=== PATIENT | female | born 1995 | race Caucasian/White ===

== ENCOUNTER 2023-11-18 23:07 | Emergency (ER) | payer OTHER ==
[2023-11-18 23:21] VITALS: BP 115/70; PULSE 75; RESP 18; TEMP 97.7; BMI 26.4
== END 2023-11-19 01:11 | disposition home or self-care (01) ==
LOC: JERFT 23:07
DX: R50.9 Fever, unspecified (principal); R42 Dizziness and giddiness; R51.9 Headache, unspecified; R59.0 Localized enlarged lymph nodes
CPT/HCPCS: 99283-25

== ENCOUNTER 2024-11-26 01:02 | Emergency (ER) | payer OTHER ==
[2024-11-26 01:34] VITALS: BP 102/70; PULSE 72; RESP 18; TEMP 97.9; BMI 25.4
[2024-11-26 02:10] LABS: HCG,QUALITATIVE URINE Negative
[2024-11-26 02:38] LABS: URINE APPEARANCE CLEAR; URINE BILIRUBIN NEGATIVE (NEGATIVE); URINE COLOR YELLOW; URINE GLUCOSE (UA) NEGATIVE (NEGATIVE); URINE KETONE TRACE (NEGATIVE)
[2024-11-26 02:39] LABS: URINE LEUK ESTERASE NEGATIVE (NEGATIVE); URINE NITRITE NEGATIVE (NEGATIVE); URINE PROTEIN TRACE (NEGATIVE); URINE UROBILINOGEN 0.2 mg/dL (0.2-1.0)
[2024-11-26 02:54] LABS: ABSOLUTE IMMATURE GRANULOCYTES 0.04 x10^3/uL (0.0-0.031); BASOPHILS # 0.04 x10^3/uL (0.01-0.08); EOSINOPHIL % 0.7 % (0.7-5.8); EOSINOPHILS # 0.07 x10^3/uL (0.04-0.36); HEMOGLOBIN 12.2 g/dL (11.2-15.7); MEAN CELL VOLUME 92.7 fl (79.4-94.8); MEAN PLT VOLUME 9.6 fl (9.4-12.3); MONOCYTE # 0.73 x10^3/uL (0.24-0.86); PLATELET COUNT 355 x10^3/uL (182-369); RDW 13.2 % (12.1-16.5)
[2024-11-26 03:13] LABS: CHLORIDE 106 mmol/L (98-107); POTASSIUM 4.3 mmol/L (3.5-5.1); SODIUM 137 mmol/L (136-145)
[2024-11-26 03:16] LABS: ALBUMIN 3.9 g/dl (3.4-5.0); CALCIUM 9.6 mg/dL (8.5-10.1)
[2024-11-26 03:17] LABS: ANION GAP 5 mmol/L (4-13); BLOOD UREA NITROGEN 14.6 mg/dL (7-18); CO2 26 mmol/L (21-32); GLUCOSE,RANDOM 92 mg/dL (74-106)
[2024-11-26 03:20] LABS: BILIRUBIN,TOTAL 0.4 mg/dL (0.2-1); CREATININE 0.6 mg/dL (0.55-1.3); SGOT/AST 17 U/L (15-37); SGPT/ALT 21 U/L (13-61); TOT PROT 7.6 g/dl (6.4-8.2)
[2024-11-26 03:23] LABS: ALK PHOS 67 U/L (45-117)
== END 2024-11-26 05:07 | disposition home or self-care (01) ==
LOC: JER 01:02
DX: N83.202 Unspecified ovarian cyst, left side (principal); N93.9 Abnormal uterine and vaginal bleeding, unspecified
CPT/HCPCS: 36415; 76830-TC; 80053; 81003; 83735; 84702; 84703; 85025; 86850; 86900; 86901; 87086; 99284-25